=== PATIENT | male | born 1970 | race Caucasian/White ===

== ENCOUNTER 2019-07-09 17:42 | Emergency (ER) | payer MEDICAID ==
[~2019-07-09] VITALS: Ht 165.1 cm; Wt 67.1 kg
[2019-07-09 18:00] VITALS: BP 132/89
--- NOTE | 2019-07-09 18:20 | NUR ---
C/O PAIN/SWELLING TO R TESTICLE X1 WEEK. PT DENIES INJURY, N/V/ABD PAIN/FEVER. PT STATES HIS URINE HAS ALSO BEEN CLOUDY, BUT DENIES DYSURIA. NOTED SWELLING TO TESTICLES, PAIN TO TOUCH TO R TESTICLE. PROVIDED PT WITH GOWN TO CHANGE INTO, SIDE RAIL UP X1, BED IN LOW POSITION.
--- NOTE | 2019-07-09 18:25 | NUR ---
URINE COLLECTED AND SENT TO LAB
[2019-07-09 18:40] LABS: BILIRUBIN,URINE NEGATIVE (NEGATIVE); BLOOD, URINE 2+ (NEGATIVE); COLOR,URINE YELLOW (YELLOW); LEUKOCYTE ESTERASE ,URINE 1+ (NEGATIVE); NITRITE, URINE NEGATIVE (NEGATIVE); UGLUCOSE NEGATIVE (NEGATIVE)
[2019-07-09 18:48] LABS: APPEARANCE,URINE HAZY (CLEAR)
[2019-07-09 18:54] LABS: RBC,URINE 20-50 /HPF (0-5); WBC,URINE TOO MANY TO COUNT /HPF (0-5)
--- NOTE | 2019-07-09 19:15 | NUR ---
REPORT RECEIVED FROM GIOVANNI PERDUE, TRANSFER OF CARE AT THIS TIME
--- NOTE | 2019-07-09 19:42 | NUR ---
PATIENT ALERT AND AWAKE, BREATHING EVEN AND UNLABORED
--- NOTE | 2019-07-09 19:45 | NUR ---
Dr. Chirinos examining patient.
[2019-07-09] MEDS ORDERED: cefTRIAXone 1,000 MG in LIDOCAINE MPF 1% 2.1 ML IM ONE (19:50)
[2019-07-09] MEDS ORDERED: cefTRIAXone 1,000 MG VIAL ONE (19:52)
[2019-07-09] MEDS ORDERED: LIDOCAINE MPF 1% 5 ML ONE (19:53)
[2019-07-09 20:19] VITALS: BP 128/74
--- NOTE | 2019-07-09 20:19 | NUR ---
Patient discharged with v/s stable. Written and verbal after care instructions about urinary tract infections and testicular masses given and explained. Patient alert, oriented and verbalized understanding of instructions. Ambulatory with steady gait. All questions addressed prior to discharge. ID band removed. Patient advised to follow up with PMD. Rx of levaquin given. Patient educated on indication of medication including possible reaction and side effects. Opportunity to ask questions provided and answered.
== END 2019-07-09 20:19 | disposition home or self-care (01) ==
LOC: MED 17:42
DX: N39.0 Urinary tract infection, site not specified (principal); Z88.5 Allergy status to narcotic agent
CPT/HCPCS: 76870; 81001; 87086; 96372; 99284; J0696; J2001; Q0092